=== PATIENT | female | born 1995 | race African-American/Black ===

== ENCOUNTER 2018-02-18 17:49 | Emergency (ER) | payer OTHER, SELFPAY ==
[2018-02-18 17:55] VITALS: BP 132/81; PULSE 90; RESP 18; O2SAT 98
[2018-02-18 19:00] VITALS: BP 128/85; PULSE 94; O2SAT 99
--- NOTE | 2018-02-18 19:41 | ED.UPPEXIN ---
HPI - Extremity Injury (Upper) <ESME Kelly - Last Filed: 02/18/18 22:27> General Chief Complaint: Extremity Injury, Upper Stated Complaint: CAN'T MOVE RT ARM,TINGLING,33 WEEKS PREG Time Seen by Provider: 02/18/18 19:16 Source: patient Mode of arrival: ambulatory Limitations: no limitations History of Present Illness HPI narrative: 22-year-old healthy nonsmoking female currently 33 weeks 1 para 0. She is here for complaint of pain into her right shoulder that started last night. She states that there is no trauma to the shoulder. She does state that she did go to yoga yesterday for the 1st time and pain started afterwards. She denies any other painful areas. Increased pain with movement of the right shoulder. She denies any abdominal pain. No vaginal discharge or bleeding. No fever no chills. No other concerns or complaints MD complaint: injury to: right and shoulder Related Data Previous Rx's Medication Instructions Recorded 1 tab PO DAILY #90 tab 01/28/18 vitamin,calcium,bzwcemtt-cxgu-khtdq acid tablet propranolol 80 mg tablet 80 mg PO BID #60 tab 01/28/18 Allergies Allergy/AdvReac Type Severity Reaction Status Date / Time acetaminophen Allergy Severe Anaphylaxis Verified 01/28/18 14:40 Review of Systems <ESME Kelly - Last Filed: 02/18/18 22:27> Constitutional Denies chills, Denies fever(s), Denies lethargy and Denies weakness Eyes Denies change in vision, Denies eye discharge, Denies irritation and Denies loss of vision ENT Ears, Nose, Mouth, and Throat: Denies change in voice, Denies neck pain and Denies sore throat Cardiovascular Denies chest pain, Denies irregular heart rhythm, Denies lightheadedness, Denies palpitations, Denies dyspnea, Denies dyspnea on exertion and Denies orthopnea Respiratory Denies cough, Denies dyspnea, Denies dyspnea on exertion and Denies wheezing Gastrointestinal Gastrointestinal: Denies abdominal pain, Denies change in bowel habits, Denies diarrhea, Denies nausea and Denies vomiting Genitourinary Denies hematuria, Denies flank pain, Denies urinary incontinence and Denies urinary urgency Musculoskeletal Denies neck pain Comments: Right shoulder pain Integumentary/Breasts Denies pruritus, Denies erythema, Denies rash and Denies wounds Neurologic Denies confusion, Denies loss of vision and Denies weakness Psychiatric Denies anxiety, Denies confusion, Denies depression, Denies homicidal ideation and Denies suicidal ideation Endocrine Denies palpitations Hematologic/Lymphatic Denies easy bruising Allergic/Immunologic Denies wheezing Exam <ESME Kelly - Last Filed: 02/18/18 22:27> Initial Vital Signs Initial Vital Signs: Vital Signs Pulse Rate 90 02/18/18 17:55 Respiratory Rate 18 02/18/18 17:55 Blood Pressure 132/81 02/18/18 17:55 Pulse Oximetry 98 02/18/18 17:55 Const General: cooperative and well developed Nutritional Appearance: well nourished Orientation: alert, awake, oriented x3 and not confused HENND Mouth: oral mucosae normal and moist mucous membranes Eyes Conjunctivae: conjunctivae normal Sclera: sclerae normal Pupils: PERRL EOM: EOM intact bilaterally Chest Chest: normal inspection of the chest Resp Effort & Inspection: normal respiratory effort, able to speak in complete sentences, no respiratory distress and no use of accessory muscles Auscultation: clear to auscultation bilaterally, no rales, no rhonchi and no wheezes Cardio Rate: regular rate Rhythm: regular rhythm Heart Sounds: no click, no gallops, no murmurs and no rubs Pulses: normal peripheral pulses GI Inspection: non-distended Palpation: soft, no hepatosplenomegaly, No guarding, No pulsatile mass and No tender Auscultation: normal bowel sounds Skin General: no rashes or lesions noted, No jaundice and No petechiae Neuro General: alert, oriented x3, gait normal and no focal motor deficits Speech: speech normal Extrem Other: Right shoulder with no signs of trauma. No deformities. No ecchymosis no swelling. Distal sensation is intact. Distal pulses are intact distal range of motion is intact. Pain to palpation to the right deltoid region. <Gulshan Fox DO - Last Filed: 02/18/18 23:42> Initial Vital Signs Initial Vital Signs: Vital Signs Pulse Rate 90 02/18/18 17:55 Respiratory Rate 18 02/18/18 17:55 Blood Pressure 132/81 02/18/18 17:55 Pulse Oximetry 98 02/18/18 17:55 Course <ESME Kelly - Last Filed: 02/18/18 22:27> Orders Ordered: ED Orders 02/18/18 20:00 Complete Blood Count AUTO DIFF Stat Comprehensive Metabolic Panel Stat 02/18/18 20:02 XR shoulder RT min 2V Stat 02/18/18 20:30 Urine Culture Stat Urine Microscopic Stat Vital Signs - 8 hr 02/18/18 17:55 02/18/18 19:00 02/18/18 21:31 Pulse Rate 90 94 H 85 Respiratory Rate 18 18 Blood Pressure 132/81 123/75 Blood Pressure [Right Arm] 128/85 Pulse Oximetry 98 99 96 <Gulshan Fox DO - Last Filed: 02/18/18 23:42> Orders Ordered: ED Orders 02/18/18 20:00 Complete Blood Count AUTO DIFF Stat Comprehensive Metabolic Panel Stat 02/18/18 20:02 XR shoulder RT min 2V Stat 02/18/18 20:30 Urine Culture Stat Urine Microscopic Stat Vital Signs - 8 hr 02/18/18 17:55 02/18/18 19:00 02/18/18 21:31 Pulse Rate 90 94 H 85 Respiratory Rate 18 18 Blood Pressure 132/81 123/75 Blood Pressure [Right Arm] 128/85 Pulse Oximetry 98 99 96 MDM - Extremity Injury (Upper) <ESME Kelly - Last Filed: 02/18/18 22:27> Lab Data Result diagrams: 02/18/18 20:00 02/18/18 20:00 Lab Results 02/18/18 02/18/18 02/18/18 Range/Units 20:00 20:00 20:30 WBC 8.7 (4.5-11.0) X10^3/uL RBC 4.16 (4.0-5.2) X10^6/uL Hgb 13.0 (12.0-16.0) g/dL Hct 38.9 (36-46) % MCV 93.4 (80-100) fL MCH 31.3 (26-34) PG MCHC 33.5 (30-36) % RDW 12.5 (11.6-14.8) % Plt Count 216 (150-400) X10^3/uL Neut % (Auto) 56.6 (50-75) % Lymph % (Auto) 28.8 (25-40) % [place] % (Auto) 12.0 (3-14) % Eos % (Auto) 2.0 (2-4) % Baso % (Auto) 0.6 (0-2) % Neut # (Auto) 4900 (6051-6072) /uL Sodium 139 (137-145) mmol/L Potassium 4.1 (3.4-5.1) mmol/L Chloride 104 (98-107) mmol/L Carbon Dioxide 28 (22-32) mmol/L BUN 5 L (7-17) mg/dL Creatinine 0.60 (0.52-1.04) mg/dL Estimated GFR > 60.0 (>60) mL/min BUN/Creatinine Ratio 8.3 (6-22) Glucose 90 (70-100) mg/dL Calcium 8.9 (8.4-10.2) mg/dL Total Bilirubin 0.1 L (0.2-1.3) mg/dL AST 22 (14-36) IU/L ALT 24 (9-52) IU/L Alkaline Phosphatase 106 (38-126) U/L Total Protein 6.7 (6.3-8.2) g/dL Albumin 3.8 (3.5-5.0) g/dL Globulin 2.9 (1.7-4.1) g/dL Albumin/Globulin Ratio 1.3 (1.0-2.8) Urine RBC None seen (0-5/HPF) Urine WBC 1-5/hpf (0-5/HPF) Ur Squamous Epith Cells 5-10 /hpf H Urine Bacteria Moderate (10-30) H (None) Ur Culture Indicated? Specimen cultured Micro UA Comment Not Reportable Urine Dip Bedside Urine Glucose Negative Bedside Urine Bilirubin - Negative Bedside Urine Ketone - Negative Urine Specific [place] 1.015 Bedside Urine Occult Blood - Negative Bedside Urine pH 7.0 Bedside Urine Protein - Negative Bedside Urine Urobilinogen - Negative Bedside Urine Nitrite - Negative Bedside Urine Leukocytes +/- 15 Esterase Imaging Data Right shoulder : Radiologist's impression: [address] [address] XRay Report Signed Patient: Deb Baltazar EMR#: [id number] : 1995Acct:[id number] Age/Sex: 22 / FDate of Service: 02/18/18 Loc: ED Accession Number: [id number] Procedure: XR shoulder RT min 2V Ordering Provider: Karl Ramirez PROCEDURE: XR SHOULDER RT MIN 2V INDICATIONS: Pain to right shoulder TECHNIQUE: 3 views of the shoulder were acquired. COMPARISON: None. FINDINGS: Bones: No fractures or dislocations. No suspicious bony lesions. Visualized ribs appear intact. Soft tissues: No suspicious soft tissue calcifications. IMPRESSION: Unremarkable radiographic examination of right shoulder. Dictated by: Reji Bergeron M.D. on 02/18/2018 at 20:32 Approved by: Reji Bergeron M.D. on 02/18/2018 at 20:32 [facility] Narrative Medical decision making narrative: CBC and Chem panel were obtained were unremarkable. Urinalysis shows moderate bacteria however has 5-10 squamous epithelial cells patient is asymptomatic. X-ray the right shoulder was obtained was negative for any acute findings. Signs and symptoms presents as muscle strain into the right shoulder region. Patient has lidocaine patches prescribed will have her continue to use those for discomfort and she cannot take Tylenol or ibuprofen. Follow up with primary care provider in the next few days for re-evaluation. Gentle range of motion to painful area keep muscles loose. Rest area. For any worsening symptoms return emergency room. <Gulshan Fox, DO - Last Filed: 02/18/18 23:42> Lab Data Lab Results 02/18/18 02/18/18 02/18/18 Range/Units 20:00 20:00 20:30 WBC 8.7 (4.5-11.0) X10^3/uL RBC 4.16 (4.0-5.2) X10^6/uL Hgb 13.0 (12.0-16.0) g/dL Hct 38.9 (36-46) % MCV 93.4 (80-100) fL MCH 31.3 (26-34) PG MCHC 33.5 (30-36) % RDW 12.5 (11.6-14.8) % Plt Count 216 (150-400) X10^3/uL Neut % (Auto) 56.6 (50-75) % Lymph % (Auto) 28.8 (25-40) % [place] % (Auto) 12.0 (3-14) % Eos % (Auto) 2.0 (2-4) % Baso % (Auto) 0.6 (0-2) % Neut # (Auto) 4900 (5121-7205) /uL Sodium 139 (137-145) mmol/L Potassium 4.1 (3.4-5.1) mmol/L Chloride 104 (98-107) mmol/L Carbon Dioxide 28 (22-32) mmol/L BUN 5 L (7-17) mg/dL Creatinine 0.60 (0.52-1.04) mg/dL Estimated GFR > 60.0 (>60) mL/min BUN/Creatinine Ratio 8.3 (6-22) Glucose 90 (70-100) mg/dL Calcium 8.9 (8.4-10.2) mg/dL Total Bilirubin 0.1 L (0.2-1.3) mg/dL AST 22 (14-36) IU/L ALT 24 (9-52) IU/L Alkaline Phosphatase 106 (38-126) U/L Total Protein 6.7 (6.3-8.2) g/dL Albumin 3.8 (3.5-5.0) g/dL Globulin 2.9 (1.7-4.1) g/dL Albumin/Globulin Ratio 1.3 (1.0-2.8) Urine RBC None seen (0-5/HPF) Urine WBC 1-5/hpf (0-5/HPF) Ur Squamous Epith Cells 5-10 /hpf H Urine Bacteria Moderate (10-30) H (None) Ur Culture Indicated? Specimen cultured Micro UA Comment Not Reportable Urine Dip Bedside Urine Glucose Negative Bedside Urine Bilirubin - Negative Bedside Urine Ketone - Negative Urine Specific [place] 1.015 Bedside Urine Occult Blood - Negative Bedside Urine pH 7.0 Bedside Urine Protein - Negative Bedside Urine Urobilinogen - Negative Bedside Urine Nitrite - Negative Bedside Urine Leukocytes +/- 15 Esterase Discharge Plan Departure Patient Disposition: Home Clinical Impression: Right shoulder strain Discharge Date/Time: 02/18/18 21:32 Interventions: ED Discharge Assessment Last Done: 02/18/18 21:31 Instructions: DI for Shoulder Pain Activity Restrictions/Additional Instructions: Laboratory results today were unremarkable. X-ray the right shoulder was obtained was negative for any acute findings. Signs and symptoms presents as strain to the right shoulder. Use lidocaine patches as prescribed for discomfort. Rest area. Gentle range of motion to painful area keep muscles loose. Follow up with primary care provider in the next few days for re-evaluation. For any worsening symptoms return to the emergency room. Prescriptions: No Action propranolol 80 mg tablet 80 mg PO BID Qty: 60 RF: 0 prenat.vits,kassidy,piz-pojo-vnclf [ Vitamin] tablet 1 tab PO DAILY Qty: 90 RF: 0 Referrals: Carmen Godinez DO [Primary Care Provider] - <Gulshan Fox DO - Last Filed: 02/18/18 23:42> Cosign ED Attending Nate Attestation: I was available for consultation during this patient's emergency department encounter
--- NOTE | 2018-02-18 20:02 | DI.RAD.S_ITS ---
PROCEDURE: XR SHOULDER RT MIN 2V INDICATIONS: Pain to right shoulder TECHNIQUE: 3 views of the shoulder were acquired. COMPARISON: None. FINDINGS: Bones: No fractures or dislocations. No suspicious bony lesions. Visualized ribs appear intact. Soft tissues: No suspicious soft tissue calcifications. IMPRESSION: Unremarkable radiographic examination of right shoulder. Dictated by: Reji Bergeron M.D. on 02/18/2018 at 20:32 Approved by: Reji Bergeron M.D. on 02/18/2018 at 20:32
[2018-02-18 20:05] LABS: Add Manual Diff / Slide Review NO; Basophils Percent Auto 0.6 % (0-2); Hematocrit 38.9 % (36-46); Lymphocytes Percent Auto 28.8 % (25-40); Mean Corpuscular HGB Conc 33.5 % (30-36); Mean Corpuscular Hemoglobin 31.3 PG (26-34); Mean Corpuscular Volume 93.4 fL (80-100); Neutrophils Absolute Auto 4900 /uL (3000-5900); Neutrophils Percent Auto 56.6 % (50-75); Platelet Count 216 X10^3/uL (150-400); Red Blood Cell Count 4.16 X10^6/uL (4.0-5.2); Red Cell Distribution Width 12.5 % (11.6-14.8); White Blood Cell Count 8.7 X10^3/uL (4.5-11.0)
[2018-02-18 20:18] LABS: Alanine Aminotransferase 24 IU/L (9-52); Albumin 3.8 g/dL (3.5-5.0); Albumin Globulin Ratio 1.3 (1.0-2.8); Alkaline Phosphatase 106 U/L (38-126); Aspartate Aminotransferase 22 IU/L (14-36); BUN Creatinine Ratio 8.3 (6-22); Bilirubin Total 0.1 mg/dL (0.2-1.3); Blood Urea Nitrogen 5 mg/dL (7-17); Calcium 8.9 mg/dL (8.4-10.2); Carbon Dioxide 28 mmol/L (22-32); Chloride 104 mmol/L (98-107); Estimated Glomerular Filt Rate > 60.0 mL/min (>60); Globulin 2.9 g/dL (1.7-4.1); Glucose 90 mg/dL (70-100); HEMOLYSIS < 15 (0-50); Potassium 4.1 mmol/L (3.4-5.1); Sodium 139 mmol/L (137-145); Total Protein 6.7 g/dL (6.3-8.2)
[2018-02-18 20:49] LABS: RBC Urine None Seen (0-5/HPF)
[2018-02-18 21:01] LABS: WBC Urine 1-5/HPF (0-5/HPF)
[2018-02-18 21:02] LABS: Bacteria Urine Moderate (10-30); Culture Indicated Urine Specimen Cultured; Squamous Epithelial Cell Urine 5-10 /HPF
--- NOTE | 2018-02-18 21:07 | ED_ITS ---
HPI - Extremity Injury (Upper) <ESME Kelly - Last Filed: 02/18/18 22:27> General Chief Complaint: Extremity Injury, Upper Stated Complaint: CAN'T MOVE RT ARM,TINGLING,33 WEEKS PREG Time Seen by Provider: 02/18/18 19:16 Source: patient Mode of arrival: ambulatory Limitations: no limitations History of Present Illness HPI narrative: 22-year-old healthy nonsmoking female currently 33 weeks 1 para 0. She is here for complaint of pain into her right shoulder that started last night. She states that there is no trauma to the shoulder. She does state that she did go to yoga yesterday for the 1st time and pain started afterwards. She denies any other painful areas. Increased pain with movement of the right shoulder. She denies any abdominal pain. No vaginal discharge or bleeding. No fever no chills. No other concerns or complaints MD complaint: injury to: right and shoulder Related Data Previous Rx's Medication Instructions Recorded 1 tab PO DAILY #90 tab 01/28/18 vitamin,calcium,xghgqymq-cypq-pmdwy acid tablet propranolol 80 mg tablet 80 mg PO BID #60 tab 01/28/18 Allergies Allergy/AdvReac Type Severity Reaction Status Date / Time acetaminophen Allergy Severe Anaphylaxis Verified 01/28/18 14:40 Review of Systems <ESME Kelly - Last Filed: 02/18/18 22:27> Constitutional Denies chills, Denies fever(s), Denies lethargy and Denies weakness Eyes Denies change in vision, Denies eye discharge, Denies irritation and Denies loss of vision ENT Ears, Nose, Mouth, and Throat: Denies change in voice, Denies neck pain and Denies sore throat Cardiovascular Denies chest pain, Denies irregular heart rhythm, Denies lightheadedness, Denies palpitations, Denies dyspnea, Denies dyspnea on exertion and Denies orthopnea Respiratory Denies cough, Denies dyspnea, Denies dyspnea on exertion and Denies wheezing Gastrointestinal Gastrointestinal: Denies abdominal pain, Denies change in bowel habits, Denies diarrhea, Denies nausea and Denies vomiting Genitourinary Denies hematuria, Denies flank pain, Denies urinary incontinence and Denies urinary urgency Musculoskeletal Denies neck pain Comments: Right shoulder pain Integumentary/Breasts Denies pruritus, Denies erythema, Denies rash and Denies wounds Neurologic Denies confusion, Denies loss of vision and Denies weakness Psychiatric Denies anxiety, Denies confusion, Denies depression, Denies homicidal ideation and Denies suicidal ideation Endocrine Denies palpitations Hematologic/Lymphatic Denies easy bruising Allergic/Immunologic Denies wheezing Exam <ESME Kelly - Last Filed: 02/18/18 22:27> Initial Vital Signs Initial Vital Signs: Vital Signs Pulse Rate 90 02/18/18 17:55 Respiratory Rate 18 02/18/18 17:55 Blood Pressure 132/81 02/18/18 17:55 Pulse Oximetry 98 02/18/18 17:55 Const General: cooperative and well developed Nutritional Appearance: well nourished Orientation: alert, awake, oriented x3 and not confused HENMA Mouth: oral mucosae normal and moist mucous membranes Eyes Conjunctivae: conjunctivae normal Sclera: sclerae normal Pupils: PERRL EOM: EOM intact bilaterally Chest Chest: normal inspection of the chest Resp Effort & Inspection: normal respiratory effort, able to speak in complete sentences, no respiratory distress and no use of accessory muscles Auscultation: clear to auscultation bilaterally, no rales, no rhonchi and no wheezes Cardio Rate: regular rate Rhythm: regular rhythm Heart Sounds: no click, no gallops, no murmurs and no rubs Pulses: normal peripheral pulses GI Inspection: non-distended Palpation: soft, no hepatosplenomegaly, No guarding, No pulsatile mass and No tender Auscultation: normal bowel sounds Skin General: no rashes or lesions noted, No jaundice and No petechiae Neuro General: alert, oriented x3, gait normal and no focal motor deficits Speech: speech normal Extrem Other: Right shoulder with no signs of trauma. No deformities. No ecchymosis no swelling. Distal sensation is intact. Distal pulses are intact distal range of motion is intact. Pain to palpation to the right deltoid region. <Gulshan Fox DO - Last Filed: 02/18/18 23:42> Initial Vital Signs Initial Vital Signs: Vital Signs Pulse Rate 90 02/18/18 17:55 Respiratory Rate 18 02/18/18 17:55 Blood Pressure 132/81 02/18/18 17:55 Pulse Oximetry 98 02/18/18 17:55 Course <ESME Kelly - Last Filed: 02/18/18 22:27> Orders Ordered: ED Orders 02/18/18 20:00 Complete Blood Count AUTO DIFF Stat Comprehensive Metabolic Panel Stat 02/18/18 20:02 XR shoulder RT min 2V Stat 02/18/18 20:30 Urine Culture Stat Urine Microscopic Stat Vital Signs - 8 hr 02/18/18 17:55 02/18/18 19:00 02/18/18 21:31 Pulse Rate 90 94 H 85 Respiratory Rate 18 18 Blood Pressure 132/81 123/75 Blood Pressure [Right Arm] 128/85 Pulse Oximetry 98 99 96 <Gulshan Fox DO - Last Filed: 02/18/18 23:42> Orders Ordered: ED Orders 02/18/18 20:00 Complete Blood Count AUTO DIFF Stat Comprehensive Metabolic Panel Stat 02/18/18 20:02 XR shoulder RT min 2V Stat 02/18/18 20:30 Urine Culture Stat Urine Microscopic Stat Vital Signs - 8 hr 02/18/18 17:55 02/18/18 19:00 02/18/18 21:31 Pulse Rate 90 94 H 85 Respiratory Rate 18 18 Blood Pressure 132/81 123/75 Blood Pressure [Right Arm] 128/85 Pulse Oximetry 98 99 96 MDM - Extremity Injury (Upper) <ESME Kelly - Last Filed: 02/18/18 22:27> Lab Data Result diagrams: 02/18/18 20:00 02/18/18 20:00 Lab Results 02/18/18 02/18/18 02/18/18 Range/Units 20:00 20:00 20:30 WBC 8.7 (4.5-11.0) X10^3/uL RBC 4.16 (4.0-5.2) X10^6/uL Hgb 13.0 (12.0-16.0) g/dL Hct 38.9 (36-46) % MCV 93.4 (80-100) fL MCH 31.3 (26-34) PG MCHC 33.5 (30-36) % RDW 12.5 (11.6-14.8) % Plt Count 216 (150-400) X10^3/uL Neut % (Auto) 56.6 (50-75) % Lymph % (Auto) 28.8 (25-40) % [place] % (Auto) 12.0 (3-14) % Eos % (Auto) 2.0 (2-4) % Baso % (Auto) 0.6 (0-2) % Neut # (Auto) 4900 (1090-8798) /uL Sodium 139 (137-145) mmol/L Potassium 4.1 (3.4-5.1) mmol/L Chloride 104 (98-107) mmol/L Carbon Dioxide 28 (22-32) mmol/L BUN 5 L (7-17) mg/dL Creatinine 0.60 (0.52-1.04) mg/dL Estimated GFR > 60.0 (>60) mL/min BUN/Creatinine Ratio 8.3 (6-22) Glucose 90 (70-100) mg/dL Calcium 8.9 (8.4-10.2) mg/dL Total Bilirubin 0.1 L (0.2-1.3) mg/dL AST 22 (14-36) IU/L ALT 24 (9-52) IU/L Alkaline Phosphatase 106 (38-126) U/L Total Protein 6.7 (6.3-8.2) g/dL Albumin 3.8 (3.5-5.0) g/dL Globulin 2.9 (1.7-4.1) g/dL Albumin/Globulin Ratio 1.3 (1.0-2.8) Urine RBC None seen (0-5/HPF) Urine WBC 1-5/hpf (0-5/HPF) Ur Squamous Epith Cells 5-10 /hpf H Urine Bacteria Moderate (10-30) H (None) Ur Culture Indicated? Specimen cultured Micro UA Comment Not Reportable Urine Dip Bedside Urine Glucose Negative Bedside Urine Bilirubin - Negative Bedside Urine Ketone - Negative Urine Specific [place] 1.015 Bedside Urine Occult Blood - Negative Bedside Urine pH 7.0 Bedside Urine Protein - Negative Bedside Urine Urobilinogen - Negative Bedside Urine Nitrite - Negative Bedside Urine Leukocytes +/- 15 Esterase Imaging Data Right shoulder : Radiologist's impression: [address] [address] XRay Report Signed Patient: Deb Baltazar EMR#: [id number] : 1995Acct:[id number] Age/Sex: 22 / FDate of Service: 02/18/18 Loc: ED Accession Number: [id number] Procedure: XR shoulder RT min 2V Ordering Provider: Karl Ramirez PROCEDURE: XR SHOULDER RT MIN 2V INDICATIONS: Pain to right shoulder TECHNIQUE: 3 views of the shoulder were acquired. COMPARISON: None. FINDINGS: Bones: No fractures or dislocations. No suspicious bony lesions. Visualized ribs appear intact. Soft tissues: No suspicious soft tissue calcifications. IMPRESSION: Unremarkable radiographic examination of right shoulder. Dictated by: Reji Bergeron M.D. on 02/18/2018 at 20:32 Approved by: Reji Bergeron M.D. on 02/18/2018 at 20:32 [facility] Narrative Medical decision making narrative: CBC and Chem panel were obtained were unremarkable. Urinalysis shows moderate bacteria however has 5-10 squamous epithelial cells patient is asymptomatic. X-ray the right shoulder was obtained was negative for any acute findings. Signs and symptoms presents as muscle strain into the right shoulder region. Patient has lidocaine patches prescribed will have her continue to use those for discomfort and she cannot take Tylenol or ibuprofen. Follow up with primary care provider in the next few days for re-evaluation. Gentle range of motion to painful area keep muscles loose. Rest area. For any worsening symptoms return emergency room. <Gulshan Fox, DO - Last Filed: 02/18/18 23:42> Lab Data Lab Results 02/18/18 02/18/18 02/18/18 Range/Units 20:00 20:00 20:30 WBC 8.7 (4.5-11.0) X10^3/uL RBC 4.16 (4.0-5.2) X10^6/uL Hgb 13.0 (12.0-16.0) g/dL Hct 38.9 (36-46) % MCV 93.4 (80-100) fL MCH 31.3 (26-34) PG MCHC 33.5 (30-36) % RDW 12.5 (11.6-14.8) % Plt Count 216 (150-400) X10^3/uL Neut % (Auto) 56.6 (50-75) % Lymph % (Auto) 28.8 (25-40) % [place] % (Auto) 12.0 (3-14) % Eos % (Auto) 2.0 (2-4) % Baso % (Auto) 0.6 (0-2) % Neut # (Auto) 4900 (5305-4607) /uL Sodium 139 (137-145) mmol/L Potassium 4.1 (3.4-5.1) mmol/L Chloride 104 (98-107) mmol/L Carbon Dioxide 28 (22-32) mmol/L BUN 5 L (7-17) mg/dL Creatinine 0.60 (0.52-1.04) mg/dL Estimated GFR > 60.0 (>60) mL/min BUN/Creatinine Ratio 8.3 (6-22) Glucose 90 (70-100) mg/dL Calcium 8.9 (8.4-10.2) mg/dL Total Bilirubin 0.1 L (0.2-1.3) mg/dL AST 22 (14-36) IU/L ALT 24 (9-52) IU/L Alkaline Phosphatase 106 (38-126) U/L Total Protein 6.7 (6.3-8.2) g/dL Albumin 3.8 (3.5-5.0) g/dL Globulin 2.9 (1.7-4.1) g/dL Albumin/Globulin Ratio 1.3 (1.0-2.8) Urine RBC None seen (0-5/HPF) Urine WBC 1-5/hpf (0-5/HPF) Ur Squamous Epith Cells 5-10 /hpf H Urine Bacteria Moderate (10-30) H (None) Ur Culture Indicated? Specimen cultured Micro UA Comment Not Reportable Urine Dip Bedside Urine Glucose Negative Bedside Urine Bilirubin - Negative Bedside Urine Ketone - Negative Urine Specific [place] 1.015 Bedside Urine Occult Blood - Negative Bedside Urine pH 7.0 Bedside Urine Protein - Negative Bedside Urine Urobilinogen - Negative Bedside Urine Nitrite - Negative Bedside Urine Leukocytes +/- 15 Esterase Discharge Plan Departure Patient Disposition: Home Clinical Impression: Right shoulder strain Discharge Date/Time: 02/18/18 21:32 Interventions: ED Discharge Assessment Last Done: 02/18/18 21:31 Instructions: DI for Shoulder Pain Activity Restrictions/Additional Instructions: Laboratory results today were unremarkable. X-ray the right shoulder was obtained was negative for any acute findings. Signs and symptoms presents as strain to the right shoulder. Use lidocaine patches as prescribed for discomfort. Rest area. Gentle range of motion to painful area keep muscles loose. Follow up with primary care provider in the next few days for re- evaluation. For any worsening symptoms return to the emergency room. Prescriptions: No Action propranolol 80 mg tablet 80 mg PO BID Qty: 60 RF: 0 prenat.vits,kassidy,abl-ezwf-lxjoz [ Vitamin] tablet 1 tab PO DAILY Qty: 90 RF: 0 Referrals: Carmen Godinez DO [Primary Care Provider] - <Gulshan Fox DO - Last Filed: 02/18/18 23:42> Cosign ED Attending Nate Attestation: I was available for consultation during this patient's emergency department encounter
[2018-02-18 21:31] VITALS: BP 123/75; PULSE 85; RESP 18; O2SAT 96
== END 2018-02-18 21:32 | disposition home or self-care (01) ==
PROVIDERS: Emergency Provider Nurse Practitioner Family; PCP Family Medicine
DX: S46.911A Strain of unspecified muscle, fascia and tendon at shoulder and upper arm level, right arm, initial encounter (principal); Y93.42 Activity, yoga; Z3A.33 33 weeks gestation of pregnancy
CPT/HCPCS: 73030; 80053; 81003; 81015; 85025; 87086; 99282; 99284

== ENCOUNTER 2018-02-27 18:34 | Inpatient (IN) | payer OTHER, SELFPAY ==
[2018-02-27 19:20] LABS: Add Manual Diff / Slide Review NO; Basophils Percent Auto 1.1 % (0-2); Eosinophils Percent Auto 1.1 % (2-4); Hematocrit 40.3 % (36-46); Hemoglobin 13.5 g/dL (12.0-16.0); Lymphocytes Percent Auto 22.6 % (25-40); Mean Corpuscular HGB Conc 33.5 % (30-36); Mean Corpuscular Hemoglobin 31.4 PG (26-34); Mean Corpuscular Volume 93.8 fL (80-100); Monocytes Percent Auto 7.5 % (3-14); Neutrophils Absolute Auto 7100 /uL (3000-5900); Neutrophils Percent Auto 67.7 % (50-75); Platelet Count 234 X10^3/uL (150-400); Red Cell Distribution Width 12.5 % (11.6-14.8); White Blood Cell Count 10.4 X10^3/uL (4.5-11.0)
[2018-02-27 19:31] LABS: Carbon Dioxide 21 mmol/L (22-32); Chloride 103 mmol/L (98-107); HEMOLYSIS < 15 (0-50); Potassium 3.8 mmol/L (3.4-5.1); Sodium 138 mmol/L (137-145)
[2018-02-27] MEDS: LACTATED RINGERS 1,000 ML 1000 ML IV (20:00)
[2018-02-27] MEDS: NIFEdipine 10 MG CAPSULE PO (20:00)
[2018-02-27] MEDS: TERBUTALINE 1 MG/ML VIAL 0.25 MG SUBCUT (20:39)
--- NOTE | 2018-02-27 20:50 | P.HPOB_ITS ---
OB HPI Date/Time Date of admission: 02/27/18 Date Patient Seen: 02/27/18 Time Patient Seen: 20:30 History of Present Condition Chief complaint: Contractions : 1 Para: 0 Estimated Gestational Age (weeks): 34+6 Narrative: Deb Baltazar is a 22 year old at 34+6 weeks gestation who presented with regular painful contractions since 2 PM today. Denies loss of fluid. has been uncomplicated. Initial care with the [facility] then patient transferred care to [facility] at 30 weeks. Dating by LMP confirmed with first trimester US. LMP 06/28/17 with [facility] 04/04/18 US 09/06/17 [id number] [facility] 04/06/18 History of Present care: good care Dating criteria: LMP confirmed by 1st trimester US Ultrasounds: normal mid trimester US Obstetrical complications: labor Medical complications: none Preadmission Labs Blood type: A (+) positive -: Antibody screen: negative, GBS status: unknown, HBsAG: negative, HIV: negative and RPR/VDLR: negative -: Chlamydia screen: not detected and Gonorrhea screen: not detected -: Rubella: immune and Varicella: not immune HCT: 36.9 HCAB: negative Quad screen: Normal 1 hr GTT: 100 Evaluation Evaluation Baseline heart rate: 140 Variability: Moderate (11-25) monitor accelerations: Present monitor decelerations: Absent Contraction Frequency (minutes): 2 Uterine Contraction Intensity: Moderate Category of Tracing: I Cervical dilation (cm): 3 Cervical effacement (%): 75 station: -1 Laboratory results: Laboratory Tests 02/27/18 02/27/18 19:10 19:10 WBC 10.4 RBC 4.30 Hgb 13.5 Hct 40.3 MCV 93.8 MCH 31.4 MCHC 33.5 RDW 12.5 Plt Count 234 Neut % (Auto) 67.7 Lymph % (Auto) 22.6 L [place] % (Auto) 7.5 Eos % (Auto) 1.1 L Baso % (Auto) 1.1 Neut # (Auto) 7100 H Sodium 138 Potassium 3.8 Chloride 103 Carbon Dioxide 21 L PFSH Medical History Migraines (Chronic) Surgical History S/P tonsillectomy (Resolved) [place] teeth extracted (Resolved) Family History Mother Hypertension Hyperlipidemia Diabetes mellitus Social History marital status: unmarried,single 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, [employer]) Smoking Status: Never smoker alcohol intake: never substance use type: does not use Meds Home Medications Medication Instructions Recorded Confirmed Type 1 tab PO DAILY #90 tab 01/28/18 01/28/18 Rx vitamin,calcium,jwhnxrfx-[id number]-vbmuc acid tablet propranolol 80 mg tablet 80 mg PO BID #60 tab 01/28/18 01/28/18 Rx Allergies Allergy/AdvReac Type Severity Reaction Status Date / Time acetaminophen Allergy Severe Anaphylaxis Verified 01/28/18 14:40 Review of Systems Review of Systems All systems reviewed & are unremarkable except as noted in HPI and below Exam Vital Signs (past 8 hours): BP 131/88 Pulse 95 Const General: healthy appearing [facility] Head: normal to inspection Ears: hearing grossly normal bilaterally Nose: external nose normal Face and sinus: normal facial exam Mouth: oral mucosae normal Teeth and gingiva: dentition normal Throat: posterior oropharynx normal Eyes General: appearance normal, both eyes and all related structures Eyelids: eyelids normal Sclera: sclerae normal EOM: EOM intact bilaterally Neck Neck: normal visual inspection Resp Effort & Inspection: normal respiratory effort Auscultation: clear to auscultation bilaterally, no rales and no wheezes Cardio Rate: regular rate Rhythm: regular rhythm Heart Sounds: S1 normal, S2 normal and no murmurs External Female Exam: external appearance normal Presentation: vertex Estimated Weight (lbs): 5 Neuro General: alert, awake and oriented x3 Extrem General: normal to inspection and no pedal edema Objective Labs Result Diagrams: 02/27/18 19:10 02/27/18 19:10 Labs: Laboratory Results - last 24 hr 02/27/18 02/27/18 19:10 19:10 WBC 10.4 RBC 4.30 Hgb 13.5 Hct 40.3 MCV 93.8 MCH 31.4 MCHC 33.5 RDW 12.5 Plt Count 234 Neut % (Auto) 67.7 Lymph % (Auto) 22.6 L [place] % (Auto) 7.5 Eos % (Auto) 1.1 L Baso % (Auto) 1.1 Neut # (Auto) 7100 H Sodium 138 Potassium 3.8 Chloride 103 Carbon Dioxide 21 L Assessment and Plan (1) 34 weeks gestation of : Current visit: Yes Status: Acute (2) labor: Current visit: Yes Status: Acute Plan: Plan: Patient is a 22 year old at 34+6 weeks gestation by LMP confirmed with first trimester ultrasound, now in labor. SVE /-1. Contractions persisted despite nifedipine but improved with terbutaline. GBS pending. Patient given bethamethasone and penicillin. Will transfer to the [facility] for NICU capabilities which are not available at [facility].
[2018-02-27] MEDS: BETAMETHASONE 30 MG/5 ML MDV 12 MG IM (21:45)
== END 2018-02-27 23:05 | disposition short-term general hospital (02) | DRG 833 ==
PROVIDERS: Admitting Provider Family Medicine; PCP Family Medicine; Visit Provider Family Medicine
DX: O60.03 Preterm labor without delivery, third trimester (principal); Z3A.34 34 weeks gestation of pregnancy
CPT/HCPCS: 36415; 59025; 59050; 76815; 80051; 85025; 96360; 96372; 99236; G0378; G0379; J0702